=== PATIENT | female | born 1995 | race Caucasian/White ===

== ENCOUNTER 2017-02-16 14:45 | Emergency (ER) | payer OTHER ==
[2017-02-16 15:15] VITALS: BP 120/57
--- NOTE | 2017-02-16 16:26 | RAD ---
Indication: Right tibia and fibula pain. 2 views of the right tibia and fibula demonstrates no fracture. No other bone or joint abnormality is identified. IMPRESSION: No fracture of the right lower leg is noted.
--- NOTE | 2017-02-16 16:26 | RAD ---
Indication: Right foot pain. 2 views of the right foot demonstrates no fracture. No other bone or joint abnormality is noted. IMPRESSION: Unremarkable right foot.
--- NOTE | 2017-02-16 17:28 | UC ---
Lower Extremity/Ankle HPI - HPI Summary HPI Summary: PATIENT IS A STUDENT WHO ENJOYS THE HOBBY OF POWER LIFTING. FOR TWO WEEKS SHE HAS HAD OCCASIONAL PAIN AND TINGING ON RIGHT (LATERAL) LOWER LEG, FOOT AND ANKLE (COMMON FIBULAR NERVE DISTRIBUTION). NO KNOWN TRAUMA. NO RECENT INJURY. NO BEHAVIOR SEEMS TO INCITE OR DESIST CONDITION, SEEMS TO HAPPEN RANDOMLY. NO CALF PAIN. NO WEAKNESS. NO SHORTNESS OF BREATH. NO FEVER. NO BOTULISM. - History of Current Complaint Chief Complaint: UCLowerExtremity Stated Complaint: RIGHT ANKLE Time Seen by Provider: 02/16/17 15:31 Hx Obtained From: Patient Hx Last Menstrual Period: 02/14/17 Onset/Duration: Gradual Onset, Lasting Minutes, Lasting Weeks, Still Present Severity Initially: Mild Severity Currently: Mild Aggravating Factor(s): Standing, Ambulation - Risk Factors Gout Risk Factors: Negative DVT Risk Factors: Negative Septic Arthritis Risk Factor: Negative - Allergies/Home Medications Allergies/Adverse Reactions: Allergies Allergy/AdvReac Type Severity Reaction Status Date / Time No Known Allergies Allergy Verified 02/16/17 15:15 Home Medications: Home Medications Oral Contraceptive 1 tab PO DAILY 02/16/17 [History] PMH/Surg Hx/FS Hx/Imm Hx Previously Healthy: Yes - Surgical History Surgical History: None - Family History Known Family History: Negative: Diabetes - Social History Occupation: Student Lives: With Family Alcohol Use: Rare Substance Use Type: None Smoking Status (MU): Never Smoked Tobacco - Immunization History Most Recent Tetanus Shot: tdap 2008 Vaccination Up to Date: Yes Review of Systems Constitutional: Negative Skin: Negative Eyes: Negative ENT: Negative Respiratory: Negative Cardiovascular: Negative Gastrointestinal: Negative Genitourinary: Negative Motor: Negative Neurovascular: Negative Musculoskeletal: Arthralgia, Myalgia Neurological: Paresthesia - RIGHT LATERAL LOWER LEG ANKLE FOOT Psychological: Negative Is Patient Immunocompromised?: No All Other Systems Reviewed And Are Negative: Yes Physical Exam Triage Information Reviewed: Yes Appearance: Well-Appearing, No Pain Distress, Well-Nourished Vital Signs: Initial Vital Signs Temp 97.8 F 02/16/17 15:11 Pulse 62 02/16/17 15:11 Resp 16 02/16/17 15:11 BP 120/57 02/16/17 15:11 Pulse Ox 100 02/16/17 15:11 Vital Signs Reviewed: Yes Eye Exam: Normal ENT Exam: Normal ENT: Positive: Normal ENT inspection, Hearing grossly normal, TMs normal Dental Exam: Normal Neck exam: Normal Neck: Positive: Supple, Nontender, No Lymphadenopathy Respiratory Exam: Normal Respiratory: Positive: Chest non-tender, Lungs clear, Normal breath sounds, No respiratory distress, No accessory muscle use Cardiovascular Exam: Normal Cardiovascular: Positive: RRR, No Murmur, Pulses Normal, Brisk Capillary Refill Abdominal Exam: Normal Abdomen Description: Positive: Nontender, No Organomegaly, Soft Musculoskeletal: Positive: Strength Intact, ROM Intact, No Edema, Other: - INTERMITTENT PARESTHESIAS ON RIGHT LATERAL COMMON FIBULAR NERVE DISTRIBUTION, OF LOWER LEG, ANLE AND TOP OF FOOT.. Negative: Strength Limited @, ROM Limited @ Neurological Exam: Normal Neurological: Positive: Alert, Muscle Tone Normal Psychological Exam: Normal Skin Exam: Normal Skin: Negative: rashes Lower Extremity Course/Dx - Differential Dx/Diagnosis Differential Diagnosis/HQI/PQRI: Contusion, DVT, Fracture (Closed), Infection, Phlebitis, Sciatica, Sprain, Strain, Other - COMMON FIBULAR NERVE IMPINGEMENT, DM NEUROPATHY, MG, [place], BOTULISM, CONTUSION, SPRAIN. Provider Diagnoses: RIGHT LATERAL LEG PARESTHESIAS Discharge - Discharge Plan Condition: Stable Disposition: HOME Patient Education Materials: Paresthesia (ED), Leg Pain (ED) Forms: *School Release Referrals: [facility] [Outside] Clifford Stapleton NP [Primary Care Provider] - Donell Swartz MD [Medical Doctor] - If Needed Additional Instructions: PHYSICAL THERAPY REFERRAL: You have been prescribed physical therapy. Treatments may include stretching, exercise, application of heat or cold, and other modalities. After an injury, PT can reduce swelling and pain. In recovery, PT is used to restore mobility and strength. Your specific treatment goals are: Reduction of Swelling (EGS, US, ice as needed) ____X_ Pain Reduction (EGS, US, ice as needed) ___X__ TENS Pack Fitting and Instruction Wound Hydrotherapy ____X_ Preservation of Mobility ___X__ Sikh of Mobility ___X__ Strength Sikh ___X__ Work or Sports Hardening This instruction sheet also serves as your PHYSICAL THERAPY REFERRAL! Please take it with you to the therapist, so he/she will be aware of your diagnosis and treatment plan. You may see the physical therapist of your choice for these treatments, but may wish to check with your insurance to be sure the provider you select is covered. It's important to see the doctor to whom you have been referred for follow up.
== END 2017-02-16 17:29 | disposition home or self-care (01) ==
LOC: UCCORT 14:45
DX: R20.2 Paresthesia of skin (principal)
CPT/HCPCS: 81003; 99212; G0463

== ENCOUNTER 2019-02-19 12:55 | Emergency (ER) | payer OTHER ==
[2019-02-19 13:12] VITALS: BP 123/62
--- NOTE | 2019-02-19 13:23 | UC ---
Throat Pain/Nasal Sergey HPI - HPI Summary HPI Summary: nasal congestion / cough x 2 days sore throat, loosing her voice no fever, no chills, no body aches - History of Current Complaint Chief Complaint: UCRespiratory Stated Complaint: ST Time Seen by Provider: 02/19/19 13:14 Hx Obtained From: Patient Hx Last Menstrual Period: ~01/22/19 ?: No Onset/Duration: Gradual Onset, Lasting Days - 2, Still Present Severity: Moderate Pain Intensity: 0 Cough: None Associated Signs & Symptoms: Positive: Hoarseness, Nasal Discharge. Negative: Wheezing, Sinus Discomfort, Fever, Vomiting, Rash - Allergies/Home Medications Allergies/Adverse Reactions: Allergies Allergy/AdvReac Type Severity Reaction Status Date / Time No Known Allergies Allergy Verified 02/19/19 13:08 Home Medications: Home Medications NK [No Home Medications Reported] 02/19/19 [History Confirmed 02/19/19] PMH/Surg Hx/FS Hx/Imm Hx Previously Healthy: Yes - Surgical History Surgical History: None - Family History Known Family History: Negative: Diabetes - Social History Alcohol Use: Rare Substance Use Type: None Smoking Status (MU): Never Smoked Tobacco - Immunization History Most Recent Tetanus Shot: tdap 2008 Vaccination Up to Date: Yes Review of Systems All Other Systems Reviewed And Are Negative: Yes Constitutional: Positive: Negative. Negative: Fever, Chills, Fatigue Skin: Positive: Negative Eyes: Positive: Negative ENT: Positive: Sore Throat, Nasal Discharge Respiratory: Positive: Cough Cardiovascular: Positive: Negative Is Patient Immunocompromised?: No Physical Exam Triage Information Reviewed: Yes Appearance: Well-Appearing, No Pain Distress, Well-Nourished Vital Signs: Initial Vital Signs Temp 98.1 F 02/19/19 13:07 Pulse 62 02/19/19 13:07 Resp 16 02/19/19 13:07 BP 123/62 02/19/19 13:07 Pulse Ox 99 02/19/19 13:07 Vital Signs Reviewed: Yes Eye Exam: Normal Eyes: Positive: Conjunctiva Clear ENT: Positive: Normal ENT inspection, Hearing grossly normal, Pharynx normal, Nasal congestion, TMs normal. Negative: Pharyngeal erythema, Nasal drainage, TM bulging, TM dull, TM red, Tonsillar swelling, Tonsillar exudate Neck exam: Normal Neck: Positive: Supple, Nontender, No Lymphadenopathy Respiratory: Positive: Chest non-tender, Lungs clear, Normal breath sounds Cardiovascular: Positive: RRR, No Murmur, Pulses Normal Throat Pain/Nasal Course/Dx - Differential Dx/Diagnosis Provider Diagnosis: Laryngitis Discharge ED - Sign-Out/Discharge Documenting (check all that apply): Patient Departure All imaging exams completed and their final reports reviewed: No Studies - Discharge Plan Condition: Stable Disposition: HOME Patient Education Materials: Laryngitis (ED) Referrals: Clifford Stapleton [employer] [Primary Care Provider] - If Needed - Billing Disposition and Condition Condition: STABLE Disposition: Home
== END 2019-02-19 13:23 | disposition home or self-care (01) ==
LOC: UCCORT 12:55
DX: J04.0 Acute laryngitis (principal)
CPT/HCPCS: 99211; G0463